=== PATIENT | male | born 1990 | race Caucasian/White ===

== ENCOUNTER 2016-06-07 06:52 | Emergency (ER) | payer OTHER ==
[~2016-06-07] VITALS: Ht 177.8 cm; Wt 83.9 kg
--- NOTE | 2016-06-07 07:08 | NUR ---
25 YO MALE BB SELF. PT IS ALERT X 4, C/O GENERALIZED HIVES, GRADUAL ONSET X 2 DAYS. PT STATES HE DID NOT TAKE ANY OTC MEDICATION FOR THE HIVES, HE THOUGHT THEY WOULD GO AWAY WITH TIME, WHEN HE WOKE UP HE NOTICED THEY WERE WORSE, CAME TO ED FOR EVAL. DENIES ANY SOB OR THROAT IRRITATION. PT AMBULATED TO ER BED WITH STEADY GAIT, WILL CONTINUE TO MONITOR
[2016-06-07] MEDS ORDERED: FAMOTIDINE (20 MG) 20 MG TABLET ONE (07:56)
[2016-06-07] MEDS ORDERED: predniSONE 20 MG TABLET ONE (07:56)
[2016-06-07] MEDS ORDERED: diphenhydrAMINE HCL 50 MG CAPSULE ONE (07:56)
[2016-06-07] MEDS ORDERED: FAMOTIDINE (20 MG) 20 MG TABLET PO ONE (08:00)
[2016-06-07] MEDS ORDERED: diphenhydrAMINE HCL 50 MG CAPSULE PO ONE (08:00)
[2016-06-07] MEDS ORDERED: predniSONE 10 MG TABLET PO ONE (08:00)
--- NOTE | 2016-06-07 08:11 | NUR ---
Patient discharged to home in stable condition. Written and verbal after care instructions given. Patient verbalizes understanding of instruction. Prescription given to patient.
[2016-06-07 08:12] VITALS: BP 128/85
== END 2016-06-07 08:13 | disposition home or self-care (01) ==
LOC: ER 06:57
DX: T78.40XA Allergy, unspecified, initial encounter (principal); J45.909 Unspecified asthma, uncomplicated; F10.20 Alcohol dependence, uncomplicated
CPT/HCPCS: 99284; A4606; J7512; Q0163; Z7610

== ENCOUNTER 2017-03-17 05:44 | Emergency (ER) | payer OTHER ==
[~2017-03-17] VITALS: Ht 177.8 cm; Wt 81.6 kg
[2017-03-17 05:45] VITALS: BP 112/87
== END 2017-03-17 06:58 | disposition home or self-care (01) ==
LOC: ER 05:45
DX: J06.9 Acute upper respiratory infection, unspecified (principal); J45.901 Unspecified asthma with (acute) exacerbation
CPT/HCPCS: 99283; A4606; Z7610

== ENCOUNTER 2023-12-29 07:36 | Emergency (ER) | payer OTHER ==
[~2023-12-29] VITALS: Ht 177.8 cm; Wt 77.1 kg
[2023-12-29] MEDS ORDERED: predniSONE 20 MG TABLET ONE (08:08)
[2023-12-29] MEDS ORDERED: IPRATROPIUM NEB FS 0.5 MG/2.5 ML AMPUL.NEB ONE (08:10)
[2023-12-29] MEDS: predniSONE 20 MG TABLET PO ONE (08:10)
[2023-12-29] MEDS ORDERED: ALBUTEROL FS 2.5 MG/3 ML VIAL.NEB ONE (08:10)
[2023-12-29 08:14] VITALS: O2SAT 95
[2023-12-29] MEDS: ALBUTEROL FS 2.5 MG/3 ML VIAL.NEB NEB ONE (08:14)
[2023-12-29] MEDS: IPRATROPIUM NEB FS 0.5 MG/2.5 ML AMPUL.NEB NEB ONE (08:14)
[2023-12-29 08:29] VITALS: O2SAT 98
[2023-12-29 08:30] VITALS: O2SAT 98
[2023-12-29 08:45] VITALS: O2SAT 100
[2023-12-29] MEDS ORDERED: PRED20TA PO (09:21)
[2023-12-29] MEDS ORDERED: ALBU18HF2 INH (09:21)
[2023-12-29 09:45] VITALS: BP 128/74; TEMP 98.9; O2SAT 99
== END 2023-12-29 09:45 | disposition home or self-care (01) ==
LOC: ER 07:36
DX: J45.901 Unspecified asthma with (acute) exacerbation (principal); B97.89 Other viral agents as the cause of diseases classified elsewhere; J06.9 Acute upper respiratory infection, unspecified; J34.89 Other specified disorders of nose and nasal sinuses; F19.10 Other psychoactive substance abuse, uncomplicated; Z79.52 Long term (current) use of systemic steroids
CPT/HCPCS: 99285; 94640; J7512

== ENCOUNTER 2024-03-09 16:49 | Emergency (ER) | payer OTHER ==
[~2024-03-09] VITALS: Ht 177.8 cm; Wt 79.4 kg
[~2024-03-09 16:49] MED LIST: ALBU18HF2 INH; PRED20TA PO
[2024-03-09 19:08] LABS: ALANINE AMINOTRANSFERASE 33 U/L (12-78); ALBUMIN 4.6 g/dL (3.4-5.0); ALKALINE PHOSPHATASE 105 U/L (46-116); ASPARTATE AMINOTRANSFERASE 19 U/L (15-37); BILIRUBIN,DIRECT 0.1 mg/dL (0.0-0.2); BILIRUBIN,TOTAL 0.3 mg/dL (0.2-1.0); CALCIUM, SERUM 9.9 mg/dL (8.5-10.1); CARBON DIOXIDE 28 mmol/L (21-32); CHLORIDE 105 mmol/L (98-107); GLUCOSE 96 mg/dL (74-106); POTASSIUM 4.2 mmol/L (3.5-5.1); SODIUM SERUM 140 mmol/L (136-145); TOTAL PROTEIN, SERUM 8.5 g/dL (6.4-8.2); UREA NITROGEN, BLOOD 8 mg/dL (7-18)
[2024-03-09 20:10] LABS: BASOPHILS % (AUTO) 0.4 % (0.0-2.0); EOSINOPHILS # (AUTO) 0.1 K/uL (0.0-0.7); EOSINOPHILS % (AUTO) 1.2 % (0.0-6.0); HEMATOCRIT 44 % (39-51); HEMOGLOBIN 14.7 g/dL (13.5-17.5); LYMPHOCYTES # (AUTO) 1.2 K/uL (0.8-4.8); MEAN CORPUSCULAR HEMOGLOBIN 28 PG (26.0-33.0); MEAN CORPUSCULAR HGB CONC 33 g/dl (31.0-36.0); MEAN CORPUSCULAR VOLUME 85 fL (80-96); MONOCYTES # (AUTO) 0.5 K/uL (0.1-1.30); MONOCYTES % (AUTO) 5.4 % (2.0-12.0); NEUTROPHILS # (AUTO) 7.9 K/uL (1.8-8.9); PLATELET COUNT (AUTO) 303 K/uL (150-450); RED BLOOD CELL COUNT(AUTO) 5.18 MIL/uL (4.5-6.0); RED CELL DISTRIBUTION WIDTH 13.8 % (11.5-15.0); WHITE BLOOD COUNT (AUTO) 9.8 K/uL (4.3-11.0)
[2024-03-09 21:49] VITALS: BP 120/79; TEMP 98.6; O2SAT 99
== END 2024-03-09 21:49 | disposition left against medical advice (07) ==
LOC: ER 16:52
DX: R07.89 Other chest pain (principal); J45.909 Unspecified asthma, uncomplicated; Z79.52 Long term (current) use of systemic steroids
CPT/HCPCS: 36415; 71045-TC; 80048-TC; 80076-TC; 84484-TC; 85025-TC

== ENCOUNTER 2024-05-18 07:09 | Emergency (ER) | payer OTHER ==
[~2024-05-18] VITALS: Ht 177.8 cm; Wt 79.4 kg
[2024-05-18 07:26] VITALS: BP 140/90; TEMP 98.2
[2024-05-18 08:05] LABS: BASOPHILS # (AUTO) 0.1 K/uL (0.0-0.2); EOSINOPHILS # (AUTO) 0.3 K/uL (0.0-0.7); EOSINOPHILS % (AUTO) 2.4 % (0.0-6.0); HEMATOCRIT 42 % (39-51); HEMOGLOBIN 14.2 g/dL (13.5-17.5); LYMPHOCYTES # (AUTO) 2.2 K/uL (0.8-4.8); MEAN CORPUSCULAR HEMOGLOBIN 28 PG (26.0-33.0); MEAN CORPUSCULAR HGB CONC 34 g/dl (31.0-36.0); MEAN CORPUSCULAR VOLUME 83 fL (80-96); MONOCYTES # (AUTO) 0.7 K/uL (0.1-1.30); MONOCYTES % (AUTO) 6.5 % (2.0-12.0); NEUTROPHILS # (AUTO) 8.2 K/uL (1.8-8.9); NEUTROPHILS % (AUTO) 71.1 % (43.0-81.0); PLATELET COUNT (AUTO) 263 K/uL (150-450); RED BLOOD CELL COUNT(AUTO) 5.04 MIL/uL (4.5-6.0); RED CELL DISTRIBUTION WIDTH 13.5 % (11.5-15.0); WHITE BLOOD COUNT (AUTO) 11.5 K/uL (4.3-11.0)
[2024-05-18 08:13] LABS: CALCIUM, SERUM 9.4 mg/dL (8.5-10.1); POTASSIUM 4.3 mmol/L (3.5-5.1)
[2024-05-18 09:48] VITALS: O2SAT 98
== END 2024-05-18 09:51 | disposition home or self-care (01) ==
LOC: ER 07:12
DX: R00.2 Palpitations (principal); J45.909 Unspecified asthma, uncomplicated; Z79.52 Long term (current) use of systemic steroids
CPT/HCPCS: 36415; 71045-TC; 80048-TC; 83735-TC; 84484-TC; 85025-TC